=== PATIENT | female | born 1945 | race Caucasian/White ===

== ENCOUNTER 2016-08-18 10:31 | Day surgery (SDC) | payer MEDICARE, BC ==
--- NOTE | 2016-08-17 08:29 | HP ---
CC: Dr. Adelia Nunez HISTORY AND PHYSICAL: DATE OF PLANNED ADMISSION AND SURGERY: 08/18/16 HISTORY OF PRESENT ILLNESS: Ms. Kinsey is a 70-year-old white female who is admitted with left ureteral calculus for cystoscopy, left ureteroscopy, laser lithotripsy, and left ureteral sent placement. Ms. Kinsey was referred to my office about three weeks ago by Dr Nunez, her PCP, because of a three-weeks' history of recurrent episodes of gross painless hematuria. This was not associated with any renal colics, however she had some LLQ discomfort, and mild irritative voiding symptoms. Offic erenal ultrasound showed a non obstructing 5 mm calculus in the lower pole of the Lt kidney. Cystoscopy was negative, showing no bladder lesions. She then had a CT urogram, which showed a 6 mm calculus in the distal left ureter. There was no associated hydronephrosis and no renal masses noted. A 5 mm calculus noted in the lower pole calyx of the left kidney. The patient was managed conservatively. She started having some episodes of urgency and frequency and some discomfort in the left lower quadrant. Her urinalysis continued to show microscopic hematuria. She has not noted passage of her stone. The patient has work and travel plans this summer, and she is concerned that the stone will act up during her activities. Because of the duration of time the stone has been present in the ureter, which is at least 7 weeks now, the above procedure was advised and accepted. PAST MEDICAL HISTORY AND SYSTEM REVIEW: She is in excellent health. She has never been a smoker. 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 She had bilateral hip replacements in the past which were uncomplicated. She denies any cardiac or pulmonary diseases or symptoms. She denies any allergies to medications. PHYSICAL EXAMINATION GENERAL: Pleasant, healthy, and fit-looking white female. VITAL SIGNS: Blood pressure 130/70. LUNGS: Clear. HEART: Regular and rhythmic. No murmurs. ABDOMEN: Soft. No masses, no tenderness, and no CVA tenderness. IMPRESSION: Recurrent episodes of gross hematuria and mild symptoms of left ureteral pain caused by a 6-mm calculus in the distal left ureter about 3-cm above the ureterovesical junction. Non obstructing 5 mm calculus in the lower pole calyx of the Left kidney. PLAN: Considering the stone has been in the ureter for at least 7 weeks and has failed to pass, the plan is for left ureteroscopy, laser lithotripsy, and left ureteral stent placement. I discussed about plans in detail with the patient and her partner. All their questions were answered. [id number]/[facility] #: [id number] MTDD
[~2016-08-18 10:31] MED LIST: Buffered Lidocaine 0.9% SYRIN* 5 ML/SYR SYRINGE INTRADERM ONE
[2016-08-18] MEDS ORDERED: Buffered Lidocaine 0.9% SYRIN* 5 ML/SYR SYRINGE ONE (10:41)
[2016-08-18] MEDS ORDERED: cefTRIAXone(*) 2 GM ADDV.VIAL IVPB ONE (10:41)
[2016-08-18] MEDS ORDERED: Iohexol 180 (CONTRAST) 10 ML SDV IV ONE (12:57)
[2016-08-18] MEDS ORDERED: Midazolam* 1 MG/ML 5 ML VIAL (5 MG) ONE ×2 (13:14→13:39)
[2016-08-18] MEDS ORDERED: fentaNYL* 50 MCG/ML 2 ML VIAL (100 MCG VIAL) ONE (13:39)
[2016-08-18] MEDS ORDERED: Chloroprocaine 2%* 20 ML VIAL ONE (13:55)
[2016-08-18] MEDS ORDERED: fentaNYL* 50 MCG/ML 2 ML VIAL (100 MCG VIAL) IV PRN (14:20)
[2016-08-18] MEDS ORDERED: oxyCODONE TAB* 5 MG TAB PO PRN (14:20)
[2016-08-18] MEDS ORDERED: Ondansetron INJ* 2 MG/ML VIAL IV PRN (14:20)
[2016-08-18] MEDS ORDERED: HYDROcodone/ACETAMIN 5-325 MG* 1 TAB PO PRN (14:20)
[2016-08-18] MEDS ORDERED: DiMENhydriNATE IV* 50 MG/ML VIAL IV PUSH PRN (14:20)
[2016-08-18] MEDS ORDERED: Ondansetron INJ* 2 MG/ML VIAL ONE (14:37)
[2016-08-18] MEDS ORDERED: DiMENhydriNATE IV* 50 MG/ML VIAL ONE (14:37)
--- NOTE | 2016-08-18 15:09 | RAD ---
INDICATION: Left ureteral laser lithotripsy left stent insertion. COMPARISON: Comparison is made with a prior CT urogram from July 28, 2016. TECHNIQUE: 6 seconds of intermittent fluoroscopic guidance were provided and 6 spot films of the abdomen were centered on the left side. FINDINGS: There is partial opacification of the left renal collecting system. Subsequently there is placement of a double-J stent catheter on the left side which demonstrates normal course. IMPRESSION: INTRAOPERATIVE CONTROL FILMS. CPT II Codes: 6045F
[2016-08-18 17:13] VITALS: BP 123/79
--- NOTE | 2016-08-19 12:02 | OP ---
CC: Dr. Adelia Nunez OPERATIVE REPORT: DATE OF OPERATION: 08/18/16 DATE OF : 49 SURGEON: Arnel Houston MD ANESTHESIOLOGIST: Miguel Angel Brenner MD ANESTHESIA: Spinal. PRE-OP DIAGNOSIS: Left ureteral calculus. POST-OP DIAGNOSIS: Left ureteral calculus. OPERATIVE PROCEDURES: 1. Cystoscopy. 2. Left ureteroscopy and laser lithotripsy of a left ureteral calculus (6 mm). 3. Left retrograde pyelography and placement of left ureteral stent (6-Greenlandic). INDICATIONS: Ms. Kinsey is a 70-year-old white female who started having recurrent episodes of gross hematuria about 7 weeks ago. Workup with cystoscopy and CT urogram showed a 6-7 mm calculus in the distal left ureter about 5 cm above the ureterovesical junction. The patient was managed conservatively; however, she continued to have the same complaint and was having some left lower quadrant discomfort. Because of the size of the stone and the duration of her symptoms, the above procedure was advised and accepted. PATHOLOGY AT CYSTOSCOPY: The bladder mucosa looked normal. There were no suspicious bladder lesions seen. The ureteral orifices looked normal. There was a cystocele noted. Upon left ureteroscopy, a 6 to 7 mm calculus was noted about 5 cm above the level of the orifice. The calculus had the gross appearance of calcium oxalate stone. DESCRIPTION OF PROCEDURE: After successful spinal anesthesia, the patient was prepped and draped for cystoscopy. A cystoscopy was performed. A flexible-tip guidewire was then introduced into the left orifice and positioned in the area of the renal pelvis. With the guidewire in place, a 6.5 semi-rigid ureteroscope was introduced inside the bladder. A flexible-tip basket was introduced through the port of the ureteroscope and the flexible tip of the basket was introduced inside the left ureter and was used as a guide to safely introduce the scope into the ureter. The calculus was identified. It was felt to be too large to extract. The basket was then introduced proximal to the stone and was deployed to avoid proximal migration of the stone. A 550-micron laser fiber was then introduced through the other port of the ureteroscope. The stone was broken in multiple fragments. The fragments were then extracted using the basket. After a final inspection, there were no residual stone fragments, the ureteral wall was intact without evidence of any injury. Retrograde pyelography was performed and a size 6-Greenlandic stent was then placed with the proximal end coiling in the renal pelvis and the distal end coiling inside the bladder. There was good drainage of contrast from the kidney and no extravasation. The stone fragments were then extracted from the bladder and sent for stone analysis. The patient tolerated the procedure well and left the operating room in good condition. The plan is to leave the stent in place for 1 week. It will be removed in the office under local anesthesia. [id number]/[facility] #: [id number]
== END 2016-08-18 17:15 | disposition home or self-care (01) ==
LOC: OR 10:31
PROVIDERS: ATTEND Urology
PROC: 0T778DZ Dilation of Left Ureter with Intraluminal Device, Via Natural or Artificial Opening Endoscopic (ICD-10-PCS; 2016-08-18)
PROC: 0TF78ZZ Fragmentation in Left Ureter, Via Natural or Artificial Opening Endoscopic (ICD-10-PCS; principal; 2016-08-18 12:00)
DX: N20.2 Calculus of kidney with calculus of ureter (principal); E06.3 Autoimmune thyroiditis
CPT/HCPCS: 74420; 82365; 88300; C1876; J0696; J1240; J2250; J2400; J2405; J3010

== ENCOUNTER 2019-02-16 16:36 | Emergency (ER) | payer MEDICARE, OTHER ==
[2019-02-16 16:53] VITALS: BP 135/79
--- NOTE | 2019-02-16 16:54 | UC ---
Respiratory Complaint HPI - HPI Summary HPI Summary: 73 yo female presents, accompanied by her female partner, with cough. Pt tells me that about 1 week ago she began with "cold symptoms" consisting of a dry cough, post nasal drip, sinus congestion. She has been taking Russian herbs and is feeling much better, but is still having post nasal drip with a cough worse at nighttime. She has taken mucinex in the past, but states this makes her feel too "dry". She is most concerned today about being "infectious" as tomorrow she is visiting her sister who is undergoing chemo treatment for uterine cancer. Pt denies fever, chills, sore throat, SOB, chest pain. - History of Current Complaint Chief Complaint: UCRespiratory Stated Complaint: COUGH Time Seen by Provider: 02/16/19 16:53 Hx Obtained From: Patient Onset/Duration: Gradual Onset Severity Initially: Moderate Severity Currently: Mild Pain Intensity: 2 - Allergies/Home Medications Allergies/Adverse Reactions: Allergies Allergy/AdvReac Type Severity Reaction Status Date / Time latex Allergy Severe Blisters Verified 02/16/19 16:53 morphine Allergy Severe Nausea Verified 02/16/19 16:53 Home Medications: Home Medications Russian Herbs -7 Forests Ilex 15 Platycodon 1 dose PO DAILY PRN 02/16/19 [ History Confirmed 02/16/19] PMH/Surg Hx/FS Hx/Imm Hx Endocrine History: Hypothyroidism - Surgical History Surgical History: Yes Surgery Procedure, Year, and Place: APPENDECTOMY 2012 /LEFT HIP REPLACEMENT 2011. right hip replacement 2013 - Family History Known Family History: Positive: None - Social History Lives: With Family Alcohol Use: Daily Substance Use Type: None Smoking Status (MU): Never Smoked Tobacco - Immunization History Vaccination Up to Date: Yes Review of Systems All Other Systems Reviewed And Are Negative: No Constitutional: Positive: Negative Skin: Positive: Negative Eyes: Positive: Negative ENT: Positive: Nasal Discharge Respiratory: Positive: Cough Cardiovascular: Positive: Negative Gastrointestinal: Positive: Negative Neurological: Positive: Negative Psychological: Positive: Negative Physical Exam - Summary Physical Exam Summary: GENERAL: NAD. WDWN. No pain distress. SKIN: No rashes, sores, lesions, or open wounds. HEENT: Head: AT/NC Eyes: EOM intact. Conjunctiva clear without inflammation or discharge. Ears: Hearing grossly normal. TMs intact, no bulging, erythema, or edema. Nose: Nasal mucosa pink and moist. NTTP maxillary and frontal sinus. Throat: Posterior oropharynx without exudates, erythema, or tonsillar enlargement. Uvula midline. NECK: Supple. Nontender. No lymphadenopathy. CHEST: CTAB. No accessory muscle use. Breathing comfortably and in no distress. CV: RRR. Pulses intact. Cap refill <2seconds NEURO: Alert. PSYCH: Age appropriate behavior. Triage Information Reviewed: Yes Vital Signs: Initial Vital Signs Temp 98.5 F 02/16/19 16:48 Pulse 76 02/16/19 16:48 Resp 18 02/16/19 16:48 BP 135/79 02/16/19 16:48 Pulse Ox 97 02/16/19 16:48 Vital Signs Reviewed: Yes Respiratory Course/Dx - Course Course Of Treatment: Suspect viral cough. Advised to use general precautions and a facemask when visiting her sister. Will rx for tylenol with codeine syrup for her cough as pt prefers not to have mucinex. - Differential Dx/Diagnosis Provider Diagnosis: Cough Discharge ED - Sign-Out/Discharge Documenting (check all that apply): Patient Departure All imaging exams completed and their final reports reviewed: No Studies - Discharge Plan Condition: Stable Disposition: HOME Prescriptions: Acetaminoph/Cod 120/12 mg LIQ* [Tylenol/Codeine 120/12 LIQ*] 10 ml PO BEDTIME PRN #50 ml MDD 10mL PRN Reason: Cough Patient Education Materials: Viral Syndrome (ED), Acute Cough (ED) Referrals: Adelia Nunez MD [Primary Care Provider] - Additional Instructions: Your symptoms are likely from a viral infection. Viral infections do not respond to antibiotics and are limited to the treatment of symptoms. Viral infections typically run their course in 7-10 days. Drink plenty of fluids, especially if you are running any fever. Use salt water gargles several times a day. Take over the counter acetaminophen (Tylenol) or ibuprofen (Advil, Motrin) according to directions as needed for pain or fever. You may also use Chloraseptic spray or Cepacol lonzenges according to directions which contain a numbing medication and can provide some temporary relief from a sore throat. Return here or follow up with your primary care provider in 7 days if symptoms persist. - Billing Disposition and Condition Condition: STABLE Disposition: Home
== END 2019-02-16 17:18 | disposition home or self-care (01) ==
LOC: UCEAST 16:36
DX: R05 Cough (principal); Z91.040 Latex allergy status; Z88.5 Allergy status to narcotic agent
CPT/HCPCS: 99212; G0463